=== PATIENT | male | born 1970 | race African-American/Black ===

== ENCOUNTER 2020-06-18 20:00 | Emergency (ER) | payer OTHER ==
[~2020-06-18] VITALS: Ht 170.2 cm; Wt 79.4 kg
[~2020-06-18 20:00] MED LIST: LEVAQUIN 250 M250 MG PO; MUCINEX TA600 MG/TA2 PO; TYLENOL325 MG PO
[2020-06-18 20:43] LABS: ABSOLUTE NEUTROPHILS 2.8 thou/uL (1.4-8.2); BASOPHILS 1.5 % (0.0-2.0); EOSINOPHILS 2.5 % (0.0-3.0); HEMATOCRIT 42.4 % (42.0-52.0); LYMPHOCYTES 41.9 % (24.0-44.0); MCH 31.9 pg (26.0-34.0); MCHC 35.3 g/dL (28.0-37.0); MCV 90.3 fL (80.0-100.0); MONOCYTES 7.7 % (1.0-8.0); PLATELET COUNT 261 thou/uL (150-400); POLYS 46.4 % (36.0-66.0); RDW 15.2 % (10.5-14.5); WBC 5.9 thou/uL (4.0-11.0)
[2020-06-18 20:52] LABS: ANION GAP 10 mmol/L (7-16); BUN 14 mg/dL (7-18); CHLORIDE 107 mmol/L (98-107); CO2 26 mmol/L (21-32); CREATININE 1.3 mg/dL (0.7-1.3); GLUCOSE 91 mg/dL (74-106); POTASSIUM 4.1 mmol/L (3.5-5.1); SODIUM 143 mmol/L (136-145)
[2020-06-18 21:01] LABS: TROPONIN-I <0.06 ng/mL (<0.06)
[2020-06-18] MEDS ORDERED: MELOXICAM15 MG PO (22:38)
[2020-06-18] MEDS ORDERED: TIZANIDINE4 MG/1 TA1 PO (22:38)
[2020-06-18 23:21] VITALS: BP 114/66
--- NOTE | 2020-06-19 07:37 | EKG ---
[facility] [place] [address] ELECTROCARDIOGRAM REPORT Name: ARACELI ASHLEY Room #: [facility]..#: [id number] Admission: 06/18/20 Attend Phys: Discharge: 06/18/20 Date of : 70 Report #: [id number] THIS REPORT FOR: cc: MANDY - Rosio family physician/PCP MANDY - Rosio family physician/PCP Daniel Stiles MD [facility] THIS REPORT FOR: //name// [facility] ED Test Date: 2020-06-18 Test Time: 20:06:05 Pat Name: ARACELI ASHLEY Department: Room: Gender: Book Editor: [facility] : 1970 Requested By: Ricardo Alfredo Order Number: [id number] MD: Daniel Stiles Measurements Intervals [place] Rate: 68 P: 47 ND: 145 QRS: 68 QRSD: 82 T: 38 QT: 341 QTc: 363 Interpretive Statements Sinus rhythm ST elev, probable normal early repol pattern Compared to ECG 02/13/2015 16:56:19 Sinus tachycardia no longer present Electronically Signed On 06-19-2020 7:36:58 CDT by Daniel Stiles [email or web address] <ELECTRONICALLY SIGNED> By: Daniel Stiles MD, FACC 06/19/20 0736 05 05 Daniel Stiles MD, [facility] /EPI
== END 2020-06-18 23:22 | disposition home or self-care (01) ==
LOC: ER 20:00
PROVIDERS: Nurse Practitioner
DX: R07.89 Other chest pain (principal); M54.5 Low back pain; R06.02 Shortness of breath; Z87.891 Personal history of nicotine dependence